=== PATIENT | female | born 1940 | race Hispanic/Latino ===

== ENCOUNTER 2021-06-12 10:00 | Inpatient (IN) | payer OTHER ==
[~2021-06-12] VITALS: Ht 160 cm; Wt 75.3 kg
[2021-06-12 11:55] LABS: BASOPHILS % (AUTO) 0.4 % (0.0-5.0); EOSINOPHILS % (AUTO) 1.3 % (0.0-8.0); HEMATOCRIT 37.5 % (36-48); MEAN CORPUSCULAR HGB CONC 32.5 g/dL (32.0-36.0); MEAN CORPUSCULAR VOLUME 86.2 fL (79-99); MONOCYTES % (AUTO) 6.6 % (3.0-13.0); NEUTROPHILS % (AUTO) 72.3 % (40.0-77.0); PLATELET COUNT (AUTO) 155 K/uL (130-400); RED BLOOD CELL COUNT(AUTO) 4.35 MIL/uL (4.00-5.50); RED CELL DISTRIBUTION WIDTH 15.2 % (11.0-15.5); WHITE BLOOD COUNT (AUTO) 8.3 K/uL (4.8-10.8)
[2021-06-12 12:02] LABS: HEMOGLOBIN A1C 9.5 % (4.0-6.0)
[2021-06-12 12:11] LABS: ALBUMIN 3.4 g/dL (3.5-5.0); BILIRUBIN,TOTAL 0.9 mg/dL (0.2-1.0); CREATININE 1.1 mg/dL (0.5-1.5); INR 1.08 (0.85-1.15); POTASSIUM 4.8 mmol/L (3.5-5.1); PROTHROMBIN TIME 11.7 SEC (9.6-11.6); TOTAL PROTEIN, SERUM 7.7 g/dL (6.0-8.3)
[2021-06-12 12:12] LABS: PARTIAL THROMBOPLASTIN TIME 25.9 SEC (26.3-35.5)
[2021-06-12 14:52] VITALS: BP 138/62
[2021-06-12] MEDS ORDERED: LOSA100T58 PO (15:45)
[2021-06-12] MEDS ORDERED: NITR0.4T50 SL (15:45)
[2021-06-12] MEDS ORDERED: CLOP75TA14 PO (15:45)
[2021-06-12] MEDS ORDERED: AEC81 PO (15:45)
[2021-06-12] MEDS ORDERED: DULO20CA18 PO (15:45)
[2021-06-12] MEDS ORDERED: SITA1TAB2 PO (15:45)
[2021-06-12] MEDS ORDERED: EZET10TA48 PO (15:45)
[2021-06-12] MEDS ORDERED: CARV25TA PO (15:45)
[2021-06-12] MEDS ORDERED: INSLAN SQ (15:45)
[2021-06-12] MEDS ORDERED: ATOR40TA69 PO (15:45)
[2021-06-12] MEDS ORDERED: PANT40TA54 PO (15:45)
[2021-06-12] MEDS ORDERED: SEMA1PEN3 SQ (15:45)
[2021-06-13] VITALS (61 sets, daily range): BP systolic 92–155; BP diastolic 31–90
[2021-06-13] MEDS ORDERED: NOREPINEPHRINE BITARTRATE 8 MG in DEXTROSE 5%-WATER 250 ML IV PRN (07:00)
[2021-06-13] MEDS ORDERED: EPINEPHRINE PF 1MG AMP 10 MG in 0.9% NACL 250ML 240 ML IV PRN (07:00)
[2021-06-13] MEDS ORDERED: AMINOCAPROIC ACID 5,000MG VIAL 15,000 MG in 0.9% NACL 500ML IV.SOLN 420 ML IV PRN (07:00)
[2021-06-13] MEDS ORDERED: 0.9%NACL 1000ML 1,000 ML IV ONE (07:03)
[2021-06-13] MEDS ORDERED: ROPIVACAINE 0.5% 5MG/ML 30ML IJ ONE (07:05)
[2021-06-13] MEDS ORDERED: DEXAMETHASONE SOD PHOSPHATE 4 MG/ML 1ML VIAL ONE (07:05)
[2021-06-13] MEDS ORDERED: PAPAVERINE HCL 30 MG/ML 2ML VIAL ONE (07:05)
[2021-06-13] MEDS ORDERED: OCTYL 2-CYANOACRYLATE 1 EACH TP ONE (07:05)
[2021-06-13] MEDS ORDERED: VANCOMYCIN 1G VIAL ONE ×2 (07:06→09:42)
[2021-06-13] MEDS ORDERED: NITROGLYCERIN 50MG/D5W 250ML 1 BOT ONE (07:10)
[2021-06-13] MEDS ORDERED: NOREPINEPHRINE BITARTRATE 1 MG/1 ML ML IV ONE ×3 (07:37→14:37)
[2021-06-13] MEDS: CEFUROXIME SODIUM 1.5 GM VIAL IVP SCH ×2 (07:40→08:40)
[2021-06-13] MEDS ORDERED: DELNIDO FORMULA 0 BAG IV ONE (07:53)
[2021-06-13] MEDS ORDERED: AMINOCAPROIC ACID 5,000MG VIAL ONE (08:13)
[2021-06-13] MEDS ORDERED: PROTAMINE SULFATE 10 MG/ML 25ML VIAL IV ONE (08:13)
[2021-06-13] MEDS ORDERED: SODIUM BICARB 50MEQ 50ML VIAL 100 ML ONE (08:13)
[2021-06-13] MEDS ORDERED: HEPARIN 10,000 UNIT/10ML (1,000 UNIT/ML) VIAL ONE (08:13)
[2021-06-13] MEDS ORDERED: LIDOCAINE PF 100MG/5ML (2%) SYRINGE 5ML ONE (08:13)
[2021-06-13] MEDS ORDERED: ESMOLOL HCL 10 MG/ML 10 ML VIAL ONE ×2 (08:13→10:18)
[2021-06-13] MEDS ORDERED: EPINEPHRINE PF 1MG AMP ONE (08:13)
[2021-06-13] MEDS ORDERED: PROPOFOL 10 MG/ML 20ML VIAL IV ONE (08:14)
[2021-06-13] MEDS ORDERED: MIDAZOLAM HCL 1 MG/ML 2ML VIAL ONE (08:14)
[2021-06-13] MEDS ORDERED: FENTANYL CITRATE PF 50 MCG/1 ML 20ML VIAL IJ ONE (08:14)
[2021-06-13] MEDS ORDERED: ROCURONIUM 10MG/1ML SYR 10 MG/ML ML ONE (08:14)
[2021-06-13 08:57] LABS: ABG HCO3 23.7 mmol/L (21.0-28.0); ABG OXYGEN SATURATION 99.3 % (95.0-99.0); ABG PCO2 31 mmHg (32-45)
[2021-06-13 10:26] LABS: ABG BASE EXCESS 2.6 mmol/L (-2.0-3.0); ABG HCO3 25.1 mmol/L (21.0-28.0); ABG OXYGEN SATURATION 99.2 % (95.0-99.0); ABG PCO2 30 mmHg (32-45)
[2021-06-13 11:17] LABS: ABG BASE EXCESS 1.6 mmol/L (-2.0-3.0); ABG HCO3 24.8 mmol/L (21.0-28.0); ABG PCO2 34 mmHg (32-45)
[2021-06-13] MEDS ORDERED: CALCIUM GLUC 1GM 1 GM in 0.9%NACL 50ML 50 ML IV PRN (12:00)
[2021-06-13] MEDS ORDERED: PROPOFOL 1000 MG/100 ML 100 ML IV PRN (12:00)
[2021-06-13] MEDS ORDERED: ONDANSETRON 4MG INJ IV PRN (12:00)
[2021-06-13] MEDS ORDERED: POTASSIUM PHOS 15 mMOL+NS250ML 250 ML IV PRN (12:00)
[2021-06-13] MEDS ORDERED: ALBUMIN (HUMAN) 5% 250 ML IV PRN (12:00)
[2021-06-13] MEDS ORDERED: GLUCAGON 1MG KIT 1 MG ML IM PRN (12:00)
[2021-06-13] MEDS ORDERED: NOREPINEPHRINE 4MG/NS 250ML 250 ML IV PRN (12:00)
[2021-06-13] MEDS ORDERED: 0.9%NACL 1000ML 1,000 ML IV SCH (12:00)
[2021-06-13] MEDS ORDERED: INSULIN REGULAR, HUMAN 3ML 100 UNIT in 0.9%NACL 100ML 99 ML IV SCH ×2 (12:00)
[2021-06-13] MEDS ORDERED: 0.9% NACL 500ML IV.SOLN 500 ML IV SCH (12:00)
[2021-06-13] MEDS ORDERED: 0.9%NACL 10ML VIAL IVP PRN (12:00)
[2021-06-13] MEDS ORDERED: AMINOCAPROIC ACID 5,000MG VIAL 15,000 MG in 0.9% NACL 250ML 250 ML IV SCH (12:00)
[2021-06-13] MEDS ORDERED: NICARDIPINE HCL 100MG/ 0.9% NACL 100ML IV PRN (12:00)
[2021-06-13] MEDS ORDERED: ACETAMINOPHEN 650 MG SUPPOSITORY RC PRN (12:00)
[2021-06-13] MEDS ORDERED: TRAMADOL HCL 50 MG TABLET PO PRN ×2 (12:00)
[2021-06-13] MEDS ORDERED: DEXTROSE 50%-WATER 50 ML DISP.SYRIN IV PRN (12:00)
[2021-06-13] MEDS ORDERED: NITROGLYCERIN 50MG/D5W 250ML 250 BOT IV SCH (12:00)
[2021-06-13] MEDS ORDERED: MORPHINE 2 MG SYG IV PRN (12:00)
[2021-06-13] MEDS ORDERED: ACETAMINOPHEN 325 MG TAB PO PRN (12:00)
[2021-06-13] MEDS ORDERED: HYDROCODONE/ACETAMINOPHEN 5/325 MG TAB PO PRN (12:00)
[2021-06-13] MEDS ORDERED: 0.9% NACL 250ML 250 ML IV PRN (12:00)
[2021-06-13] MEDS ORDERED: MORPHINE 4 MG SYG IV PRN (12:00)
[2021-06-13 12:28] LABS: ABG OXYGEN SATURATION 72.7 % (95.0-99.0); BASE EXCESS,VENOUS BLOOD GAS 1.2 (-2.0-3.0); HCO3,VENOUS BLOOD GAS 26.3 (21.0-28.0); PCO2,VENOUS BLOOD GAS 43 (32-45)
[2021-06-13 12:31] LABS: ABG BASE EXCESS -1.9 mmol/L (-2.0-3.0); ABG HCO3 21.7 mmol/L (21.0-28.0); ABG OXYGEN SATURATION 98.7 % (95.0-99.0); ABG PCO2 32 mmHg (32-45)
[2021-06-13 12:54] LABS: HEMATOCRIT 22.3 % (36-48); MEAN CORPUSCULAR HEMOGLOBIN 28.6 pg (27.0-33.0); MEAN CORPUSCULAR HGB CONC 33.6 g/dL (32.0-36.0); MEAN CORPUSCULAR VOLUME 85.1 fL (79-99); RED BLOOD CELL COUNT(AUTO) 2.62 MIL/uL (4.00-5.50); RED CELL DISTRIBUTION WIDTH 15.1 % (11.0-15.5); WHITE BLOOD COUNT (AUTO) 10.8 K/uL (4.8-10.8)
[2021-06-13] MEDS: POTASSIUM CHLORIDE 20MEQ/100ML 100 ML IV PRN ×2 (13:00→14:00)
[2021-06-13] MEDS: MAGNESIUM 2GM PREMIX 50ML 50 ML IV PRN ×2 (13:00→17:00)
[2021-06-13 13:10] LABS: CREATININE 0.8 mg/dL (0.5-1.5); INR 1.22 (0.85-1.15); MAGNESIUM 1.5 mg/dL (1.80-2.40); POTASSIUM 3.8 mmol/L (3.5-5.1); PROTHROMBIN TIME 13.1 SEC (9.6-11.6)
[2021-06-13 13:11] LABS: PARTIAL THROMBOPLASTIN TIME 27.7 SEC (26.3-35.5)
[2021-06-13] MEDS: KETOROLAC 30MG VIAL (30MG/ML) IV PRN ×2 (14:03→22:07)
[2021-06-13] MEDS ORDERED: NICARDIPINE 100 MG/100ML IV SCH ×2 (14:30)
[2021-06-13] MEDS ORDERED: SODIUM BICARB 8.4% 50ML SYRINGE IVP ONE (14:37)
[2021-06-13] MEDS ORDERED: ALBUMIN (HUMAN) 25% 50 ML IV ONE (14:37)
[2021-06-13] MEDS ORDERED: MANNITOL 25% 50ML VIAL IV ONE (14:37)
[2021-06-13] MEDS ORDERED: AMINOCAPROIC ACID 5,000MG VIAL IV ONE (14:37)
[2021-06-13] MEDS ORDERED: CACL 1GM SYG IVP ONE (14:37)
[2021-06-13] MEDS ORDERED: HEPARIN 10,000 UNIT/10ML (1,000 UNIT/ML) VIAL IV ONE (14:37)
[2021-06-13 15:03] LABS: ABG HCO3 24.8 mmol/L (21.0-28.0); ABG OXYGEN SATURATION 97.2 % (95.0-99.0); ABG PCO2 36 mmHg (32-45)
[2021-06-13 17:11] LABS: ABG BASE EXCESS 0.1 mmol/L (-2.0-3.0); ABG HCO3 25.7 mmol/L (21.0-28.0); ABG OXYGEN SATURATION 97.1 % (95.0-99.0); ABG PCO2 47 mmHg (32-45)
[2021-06-13 17:37] LABS: CREATININE 0.9 mg/dL (0.5-1.5); MAGNESIUM 1.9 mg/dL (1.80-2.40); POTASSIUM 4.3 mmol/L (3.5-5.1)
[2021-06-13 18:42] LABS: ABG BASE EXCESS -0.3 mmol/L (-2.0-3.0); ABG HCO3 25.1 mmol/L (21.0-28.0); ABG OXYGEN SATURATION 96.8 % (95.0-99.0); ABG PCO2 44 mmHg (32-45)
[2021-06-13] MEDS ORDERED: PHARMACY COMMUNICATION MISC SCH (20:00)
[2021-06-13] MEDS: FAMOTIDINE 20MG VIAL IV SCH (20:11)
[2021-06-13] MEDS ORDERED: CEFAZOLIN SODIUM 1 GM VIAL ONE (20:38)
[2021-06-13] MEDS: CEFAZOLIN SODIUM 1 GM VIAL IVP SCH (20:39)
[2021-06-14] VITALS (30 sets, daily range): BP systolic 92–158; BP diastolic 32–87
[2021-06-14 04:02] LABS: ABG BASE EXCESS 0.6 mmol/L (-2.0-3.0); ABG HCO3 26.1 mmol/L (21.0-28.0); ABG OXYGEN SATURATION 97.4 % (95.0-99.0); ABG PCO2 45 mmHg (32-45)
[2021-06-14 04:11] LABS: HEMATOCRIT 29.2 % (36-48); MEAN CORPUSCULAR HEMOGLOBIN 28.4 pg (27.0-33.0); MEAN CORPUSCULAR HGB CONC 33.2 g/dL (32.0-36.0); MEAN CORPUSCULAR VOLUME 85.4 fL (79-99); RED BLOOD CELL COUNT(AUTO) 3.42 MIL/uL (4.00-5.50); RED CELL DISTRIBUTION WIDTH 15.6 % (11.0-15.5); WHITE BLOOD COUNT (AUTO) 13.3 K/uL (4.8-10.8)
[2021-06-14] MEDS: HYDROCODONE/ACETAMINOPHEN 5/325 MG TAB PO PRN ×2 (04:12→20:03)
[2021-06-14] MEDS: CEFAZOLIN SODIUM 1 GM VIAL IVP SCH ×3 (04:23→20:50)
[2021-06-14 04:28] LABS: CREATININE 0.8 mg/dL (0.5-1.5); MAGNESIUM 2.1 mg/dL (1.80-2.40); POTASSIUM 4.5 mmol/L (3.5-5.1)
[2021-06-14] MEDS: FAMOTIDINE 20MG VIAL IV SCH ×2 (08:58→20:50)
[2021-06-14] MEDS: KETOROLAC 30MG VIAL (30MG/ML) IV PRN (11:21)
[2021-06-14 15:22] LABS: MAGNESIUM 1.9 mg/dL (1.80-2.40); POTASSIUM 4.3 mmol/L (3.5-5.1)
[2021-06-14] MEDS: MAGNESIUM 2GM PREMIX 50ML 50 ML IV PRN (15:31)
[2021-06-14] MEDS: INSULIN HUMULIN R 100 UNIT/ML 3ML SQ SCH ×2 (16:29→20:55)
[2021-06-14 23:29] LABS: MAGNESIUM 2.1 mg/dL (1.80-2.40); POTASSIUM 4.6 mmol/L (3.5-5.1)
[2021-06-15] VITALS (25 sets, daily range): BP systolic 98–164; BP diastolic 41–94
[2021-06-15 03:42] LABS: MEAN CORPUSCULAR HEMOGLOBIN 27.8 pg (27.0-33.0); MEAN CORPUSCULAR HGB CONC 32.1 g/dL (32.0-36.0); MEAN CORPUSCULAR VOLUME 86.6 fL (79-99); RED BLOOD CELL COUNT(AUTO) 3.35 MIL/uL (4.00-5.50); RED CELL DISTRIBUTION WIDTH 15.5 % (11.0-15.5); WHITE BLOOD COUNT (AUTO) 16.3 K/uL (4.8-10.8)
[2021-06-15 03:56] LABS: CREATININE 0.9 mg/dL (0.5-1.5); POTASSIUM 4.7 mmol/L (3.5-5.1)
[2021-06-15] MEDS: CEFAZOLIN SODIUM 1 GM VIAL IVP SCH ×2 (05:16→12:05)
[2021-06-15] MEDS: INSULIN HUMULIN R 100 UNIT/ML 3ML SQ SCH ×4 (06:15→20:48)
[2021-06-15] MEDS: FAMOTIDINE 20MG VIAL IV SCH (08:21)
[2021-06-15] MEDS: CLOPIDOGREL 75MG TAB PO SCH (12:04)
[2021-06-15] MEDS: ASPIRIN 81 MG EC TAB PO SCH (12:04)
[2021-06-15] MEDS: ATORVASTATIN 20 MG TABLET PO SCH (20:46)
[2021-06-15] MEDS: CARVEDILOL 3.125 MG TABLET PO SCH (20:46)
[2021-06-16] VITALS (7 sets, daily range): BP systolic 122–156; BP diastolic 39–80
[2021-06-16 03:47] LABS: HEMATOCRIT 27.9 % (36-48); MEAN CORPUSCULAR HGB CONC 33.3 g/dL (32.0-36.0); RED BLOOD CELL COUNT(AUTO) 3.32 MIL/uL (4.00-5.50); RED CELL DISTRIBUTION WIDTH 14.8 % (11.0-15.5); WHITE BLOOD COUNT (AUTO) 11.8 K/uL (4.8-10.8)
[2021-06-16 04:00] LABS: CREATININE 0.7 mg/dL (0.5-1.5); POTASSIUM 3.8 mmol/L (3.5-5.1)
[2021-06-16] MEDS: INSULIN GLARGINE 100 UNITS/ML 10 ML VIAL SQ SCH (06:33)
[2021-06-16] MEDS: INSULIN HUMULIN R 100 UNIT/ML 3ML SQ SCH ×4 (06:35→20:35)
[2021-06-16] MEDS: CLOPIDOGREL 75MG TAB PO SCH (08:36)
[2021-06-16] MEDS: ASPIRIN 81 MG EC TAB PO SCH (08:36)
[2021-06-16] MEDS: FAMOTIDINE 20MG TAB PO SCH (08:36)
[2021-06-16] MEDS: CARVEDILOL 3.125 MG TABLET PO SCH ×2 (08:37→20:33)
[2021-06-16] MEDS: ATORVASTATIN 20 MG TABLET PO SCH (20:34)
[2021-06-17 03:00] VITALS: BP 145/74
[2021-06-17] MEDS: INSULIN HUMULIN R 100 UNIT/ML 3ML SQ SCH ×3 (06:11→17:04)
[2021-06-17 07:30] VITALS: BP 130/58
[2021-06-17 09:00] VITALS: BP 139/95
[2021-06-17] MEDS: INSULIN GLARGINE 100 UNITS/ML 10 ML VIAL SQ SCH (09:20)
[2021-06-17] MEDS: CARVEDILOL 3.125 MG TABLET PO SCH (09:43)
[2021-06-17] MEDS: FAMOTIDINE 20MG TAB PO SCH (09:43)
[2021-06-17 10:00] LABS: BASOPHILS % (AUTO) 0.2 % (0.0-5.0); EOSINOPHILS % (AUTO) 1.6 % (0.0-8.0); HEMATOCRIT 30.3 % (36-48); LYMPHOCYTES % (AUTO) 15.8 % (21.0-51.0); MEAN CORPUSCULAR HEMOGLOBIN 28.1 pg (27.0-33.0); MEAN CORPUSCULAR VOLUME 85.1 fL (79-99); MONOCYTES % (AUTO) 9.3 % (3.0-13.0); NEUTROPHILS % (AUTO) 72.5 % (40.0-77.0); PLATELET COUNT (AUTO) 141 K/uL (130-400); RED BLOOD CELL COUNT(AUTO) 3.56 MIL/uL (4.00-5.50); WHITE BLOOD COUNT (AUTO) 10.9 K/uL (4.8-10.8)
[2021-06-17 10:06] LABS: CREATININE 0.8 mg/dL (0.5-1.5); POTASSIUM 4.1 mmol/L (3.5-5.1)
[2021-06-17] MEDS: CLOPIDOGREL 75MG TAB PO SCH (10:23)
[2021-06-17] MEDS: ASPIRIN 81 MG EC TAB PO SCH (10:23)
[2021-06-17 12:00] VITALS: BP 124/50
[2021-06-17 16:00] VITALS: BP 129/47
== END 2021-06-17 17:19 | DRG 235 ==
LOC: EDSTATUS 10:00 → DAHIP 06-13 06:41 → 2CV 06-13 12:09 → 2CH 06-14 05:50 → 2DH 06-15 04:24
PROVIDERS: ADMIT Internal Medicine Cardiovascular Disease; ATTEND Internal Medicine Cardiovascular Disease
PROC: 5A1221Z Performance of Cardiac Output, Continuous (ICD-10-PCS; 2021-06-13)
PROC: 30233K1 Transfusion of Nonautologous Frozen Plasma into Peripheral Vein, Percutaneous Approach (ICD-10-PCS; 2021-06-13)
PROC: 30233N1 Transfusion of Nonautologous Red Blood Cells into Peripheral Vein, Percutaneous Approach (ICD-10-PCS; 2021-06-13)
PROC: 30233R1 Transfusion of Nonautologous Platelets into Peripheral Vein, Percutaneous Approach (ICD-10-PCS; 2021-06-13)
PROC: 02100Z9 Bypass Coronary Artery, One Artery from Left Internal Mammary, Open Approach (ICD-10-PCS; principal; 2021-06-13 08:00)
PROC: 021009W Bypass Coronary Artery, One Artery from Aorta with Autologous Venous Tissue, Open Approach (ICD-10-PCS; 2021-06-13 08:00)
PROC: 06BQ4ZZ Excision of Left Saphenous Vein, Percutaneous Endoscopic Approach (ICD-10-PCS; 2021-06-13 08:00)
PROC: B246ZZ4 Ultrasonography of Right and Left Heart, Transesophageal (ICD-10-PCS; 2021-06-13 08:00)
PROC: 5A0935A Assistance with Respiratory Ventilation, Less than 24 Consecutive Hours, High Flow/Velocity Cannula (ICD-10-PCS; 2021-06-14)
DX: I25.10 Atherosclerotic heart disease of native coronary artery without angina pectoris (principal); I50.43 Acute on chronic combined systolic (congestive) and diastolic (congestive) heart failure; Z20.822 Contact with and (suspected) exposure to COVID-19; K21.9 Gastro-esophageal reflux disease without esophagitis; I48.91 Unspecified atrial fibrillation; K74.60 Unspecified cirrhosis of liver; E78.5 Hyperlipidemia, unspecified; F32.9 Major depressive disorder, single episode, unspecified; I11.0 Hypertensive heart disease with heart failure; E11.51 Type 2 diabetes mellitus with diabetic peripheral angiopathy without gangrene; I35.0 Nonrheumatic aortic (valve) stenosis; J41.0 Simple chronic bronchitis; E11.36 Type 2 diabetes mellitus with diabetic cataract; D63.8 Anemia in other chronic diseases classified elsewhere; Z95.0 Presence of cardiac pacemaker; I25.2 Old myocardial infarction; Z98.61 Coronary angioplasty status; Z90.49 Acquired absence of other specified parts of digestive tract
CPT/HCPCS: 36415; 36430; 36600; 71045; 80048; 80053; 82330; 82435; 82803; 82947; 82948; 83036; 83605; 83735; 84132; 84295; 85018; 85025; 85027; 85347; 85610; 85730; 86850; 86900; 86901; 86923; 86927; 87635; 93005; 93313; 93318; 94002; 94150; 97039; A7048; C1757; G0378; J0171; J0610; J0690; J0697; J1100; J1644; J1815; J1885; J2001; J2150; J2250; J2440; J2704; J2720; J2795; J3010; J3370; J3475; J3490; J7030; J7040; P9016; P9017; P9034; P9047